=== PATIENT | male | born 1995 | race Caucasian/White ===

== ENCOUNTER 2017-01-08 08:00 | Inpatient (IN) | payer OTHER ==
[~2017-01-08] VITALS: Ht 175.3 cm; Wt 96.2 kg
--- NOTE | ~2017-01-08 | PN ---
Unit #: [id number] #: [id number] Patient: FLASH OSORIO [id number] [facility] [address] [place] [address] [id number] I MR#: [id number] NAME: FLASH OSORIO ROOM: [facility] Age: 21 Sex: M Admission Date: 01/08/2017 : 1995 Attending Physician: Shauna Dejesus M.D. Admitting Physician: Shauna Dejesus M.D. Primary Care Physician: Primary Care Physician Claudia JAIMES NOTES DATE OF SERVICE 01/11/2017 DISCUSSION Mr. Osorio is a 21-year-old white male who was seen today. Chart was reviewed and case was discussed with the staff. He has been anxious, withdrawn, and rather seclusive to himself. Meanwhile, he has been cooperative with the treatment recommendations and has been taking the medications and tolerating them fairly well with no reported side effects. MENTAL STATUS EXAMINATION Young white male who is casually dressed with fair personal hygiene, appears to be in no acute distress or discomfort. He was awake and alert on interaction with intact orientation. His mood is anxious with congruent affect. His speech is slow and goal-directed. He denies any suicidal or homicidal ideations. His insight and judgment remain slightly impaired. TREATMENT PLAN 1. We will continue him on his current medications and treatment protocol. We will monitor his response to medications and make further adjustments as needed. 2. We will continue to follow up. Dictated by... Arley De Dios/sudhakarg TD: 01/11/2017 13:00 JOB #: [id number] Unit #: [id number] #: [id number] Patient: FLASH OSORIO PROGRESS NOTES Page 1 of 1 X Shauna Dejesus MD PROGRESS NOTE
--- NOTE | ~2017-01-08 | DS ---
Unit #: [id number] #: [id number] Patient: [facility]ORIO [id number] [facility] [address] [place] [address] [id number] MR#: [id number] NAME: FLASH OSORIO ROOM: P131 Age: 21 Sex: M Admission Date: 01/08/2017 : 1995 Discharge Date: 01/13/2017 Attending Physician: Shauna Dejesus M.D. Primary Care Physician: Primary Care Physician No DISCHARGE SUMMARY IDENTIFYING DATA Mr. Osorio is a 21-year-old single white male, who is a resident of [place], [place], and was self-referred to the hospital by his father. DISCHARGE DIAGNOSES Psychiatric: Schizoaffective disorder, bipolar type, most recent episode manic with psychosis. Medical: None. Stressors: Mild psychosocial stressors. HISTORY OF PRESENT ILLNESS Please see initial psychiatric evaluation for details. PAST PSYCHIATRIC HISTORY Please see initial psychiatric evaluation for details. PAST MEDICAL HISTORY Please see initial psychiatric evaluation for details. HOSPITAL COURSE The patient was admitted to the adult psychiatric unit at [facility] and was oriented to the hospital environment. Routine p.r.n. medications were initiated, and he was started back on his home medications and the patient was seen to be acutely psychotic and was showing very poor insight into his situation. However, after encouragement, he was willing to take the medication, and Risperdal was initiated and was gradually titrated up to 1 mg in the morning and 2 mg at bedtime with good tolerability and therapeutic response. Followed by which, it was decided that he will be discharged home and will continue treatment on an outpatient basis. DISCHARGE MEDICATION Risperdal 1 mg in the morning and 2 mg at bedtime for psychosis. DISCHARGE CONDITION Stable. PROGNOSIS Fair. Unit #: [id number] #: [id number] Patient: FLASH OSORIO Dictated by... Arley De Dios/sridhar TD: 01/16/2017 01:54 JOB #: [id number] DISCHARGE SUMMARY Page 1 of 1 X Shauna Dejesus MD X DISCHARGE SUMMARY
--- NOTE | ~2017-01-08 | PN ---
Unit #: [id number] #: [id number] Patient: FLASH OSORIO [id number] [facility] [address] [place] [address] [id number] I MR#: [id number] NAME: FLASH OSORIO ROOM: P131 Age: 21 Sex: M Admission Date: 01/08/2017 : 1995 Attending Physician: Shauna Dejesus M.D. Admitting Physician: Shauna Dejesus M.D. Primary Care Physician: Primary Care Physician Claudia NG PROGRESS NOTES DATE 01/12/2017 DISCUSSION Mr. Osorio is a 21-year-old white male who was seen today and chart was reviewed and case was discussed with the staff. He has been anxious, withdrawn and rather seclusive to himself though appears to be doing better in his mood and psychosis as he has been compliant with treatment recommendations. He has been taking his Risperdal and tolerating it fairly well. MENTAL STATUS EXAMINATION Young white male who was casually dressed with fair personal hygiene and appears to be in no acute distress or discomfort. He was awake and alert with intact orientation. His mood was anxious with congruent affect. His speech is slow and restricted in content. His insight and judgement remain slightly impaired. TREATMENT PLAN 1. Will continue on his current medications and treatment protocol. Will monitor his response to the medications and make further adjustments as needed. 2. Will continue to follow up. Dictated by... Shauna Dejesus M.D. IAA/josé miguelh TD: 01/12/2017 20:22 JOB #: [id number] Unit #: [id number] #: [id number] Patient: FLASH OSORIO PROGRESS NOTES Page 1 of 1 X Shauna Dejesus MD PROGRESS NOTE
--- NOTE | ~2017-01-08 | PN ---
Unit #: [id number] #: [id number] Patient: FLASH OSORIO [id number] [facility] [address] [place] [address] [id number] I MR#: [id number] NAME: FLASH OSORIO ROOM: 31 Age: 21 Sex: M Admission Date: 01/08/2017 : 1995 Attending Physician: Shauna Dejesus M.D. Admitting Physician: Shauna Dejesus M.D. Primary Care Physician: Primary Care Physician Claudia NG PROGRESS NOTES DATE 01/10/2017 DISCUSSION Mr. Osorio is a 21-year-old white male with mood disorder and psychosis and was seen today and chart was reviewed and case was discussed with the staff. He remains anxious, withdrawn, disorganized and has been maintaining persistent paranoia and delusional behavior. Meanwhile, he has been taking medications and tolerating them fairly well with no reported side effects. MENTAL STATUS EXAMINATION Young white male who was casually dressed with fair personal hygiene and appears to be in no acute distress or discomfort. He was awake and alert with impaired attention and concentration. His mood was anxious with congruent affect. His speech is fluent and tangential. His thought processes were disorganized with some looseness of associations and flight of ideas. His insight and judgement remains significantly impaired. TREATMENT PLAN 1. Will continue him on his current medications and treatment protocol. Will monitor response to the medications and make further adjustments as needed. 2. Will continue to follow up. Dictated by... Arley De Dios/christian TD: 01/10/2017 15:49 JOB #: [id number] Unit #: [id number] #: [id number] Patient: FLASH OSORIO PROGRESS NOTES Page 1 of 1 X Shauna Dejesus MD PROGRESS NOTE
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
--- NOTE | ~2017-01-08 | HP ---
Unit #: [id number] #: [id number] Patient: FLASH HUYNH [id number] [place] [address] [id number] I MR#: [id number] NAME: FLASH HUYNH ROOM: P131 Age: 21 Sex: M Admission Date: 01/08/2017 : 1995 Attending Physician: Shauna Dejesus M.D. Admitting Physician: Shauna Dejesus M.D. Primary Care Physician: Primary Care Physician No HISTORY AND PHYSICAL HISTORY OF PRESENT ILLNESS Patient is a 21-year-old male admitted to [address] [place] [address] on 01/08/2017 for psychosis. PAST MEDICAL HISTORY None noted. PAST SURGICAL HISTORY Tonsillectomy. SOCIAL HISTORY He is unemployed. He lives alone. He smokes one pack of cigarettes daily. Denies alcohol and drug use. FAMILY MEDICAL HISTORY Noncontributory. ALLERGIES No known drug allergies. CURRENT MEDICATIONS Please see list of home medications. REVIEW OF SYSTEMS CONSTITUTIONAL: No fever or chills. HEENT: Denies any sore throat, ear pain or runny nose. CARDIOVASCULAR: Denies chest pain, irregular heart rhythm or palpitations. CHEST: Denies shortness of breath or cough. No hemoptysis. GASTROINTESTINAL: Denies nausea, vomiting, diarrhea or chronic constipation. ENDOCRINE: Denies history of increased thirst or urination. No recent significant weight loss or gain. GENITOURINARY: Denies dysuria, frequency, or hematuria. SKIN: Denies any rashes. HEMATOLOGIC: Denies history of increased bleeding or bruising. MUSCULOSKELETAL: Denies any hot, swollen joints. No generalized muscle pain. NEUROLOGIC: Denies problems with vision or speech. No frequent, severe headaches. No numbness, tingling or weakness in any extremities. Denies loss of bladder or bowel control. PHYSICAL EXAM GENERAL: He is awake, alert and oriented in no acute distress. VITAL SIGNS: Temperature 98.6, heart rate 78, respiration 18, blood Unit #: [id number] #: [id number] Patient: FLASH HUYNH pressure 141/85. HEIGHT: 5 foot 9. WEIGHT: 212 pounds. SKIN: Warm and dry without rash or lesion. HEENT: Normocephalic. TMs not viewed. Oral and nasal passages clear. Conjunctivae clear. PERRLA. EOMs intact. NECK: Supple without lymphadenopathy or thyromegaly. HEART: Regular rate and rhythm without murmur. LUNGS: Clear. ABDOMEN: Soft, nontender. : Not done. EXTREMITIES: No evidence of cyanosis, clubbing or edema. Moves all without focal deficit. NEUROLOGICAL: Grossly within normal limits. Cranial Nerves: II: Visual maloney are intact. III, IV AND : Extraocular movements are intact. Pupils are equal, round and reactive to light. V: Facial sensation is grossly normal. VII: Facial movements and expression are normal. VIII: Auditory acuity grossly intact. IX, X: Uvula is midline. Phonation is normal. XI: Patient shrugs shoulders and turns head normally. XII: Tongue protrudes in the midline. Sensory and Motor Function: Sensory and motor sensation is grossly normal. Motor: moves all extremities well. IMPRESSION Psychiatric admission. RECOMMENDATIONS Psychiatric per psychiatrist. MEDICAL: No contraindication to participate in facility activities. MEDICAL PROGNOSIS Good. MEDICAL CONDITION Stable. Dictated by... Franc Couch/javed TD: 01/09/2017 02:20 JOB #: [id number] Unit #: [id number] #: [id number] Patient: FLASH HUYNH HISTORY AND PHYSICAL Page 1 of 1 X RENE RIVERA APRN X HISTORY AND PHYSICAL
[2017-01-09 12:34] LABS: BASOPHIL% 0.4 % (0-2.5); EOSINOPHIL# 0.3 X10e3 (0-0.7); EOSINOPHIL% 3.8 % (0.0-7.0); HEMATOCRIT 45.8 % (38.0-50.0); HEMOGLOBIN 15.6 gm/dL (13.0-16.0); LYMPHOCYTE% 26.4 % (17.0-45.0); MEAN CELL VOLUME 85.7 FL (83-96); MEAN CORPUSCULAR HEMOGLOBIN 29.2 PG (28-34); MEAN PLATELET VOLUME 7.9 FL (6.5-11.5); MONOCYTE# 0.7 X10e3 (0-1.0); MONOCYTE% 9.1 % (3.0-12.0); NEUTROPHIL# 4.5 X10e3 (1.5-7.1); NEUTROPHIL% 60.3 % (40-75); PLATELET COUNT 218 X10e3 (140-420); RED BLOOD COUNT 5.34 X10e (3.90-5.60); RED CELL DISTRIBUTION WIDTH 12.7 % (11.0-15.5); WHITE BLOOD COUNT 7.5 X10e3 (4.0-10.5)
[2017-01-09 12:46] LABS: BILIRUBIN,TOTAL 0.8 mg/dL (0.2-2.0); CALCIUM SERUM 9.3 mg/dL (8.4-10.2); GLOM FILT RATE Estimated 106.4 mL/min (>60); POTASSIUM 4.5 mmol/L (3.5-5.1); PROTEIN TOTAL SERUM 6.3 g/dL (6.0-8.3)
[2017-01-09 12:54] LABS: DIFF IND NO
== END 2017-01-13 11:45 | disposition home or self-care (01) | DRG 885 ==
LOC: P1S 11:12
PROVIDERS: Psychiatry & Neurology Psychiatry
DX: F25.0 Schizoaffective disorder, bipolar type (principal); F31.2 Bipolar disorder, current episode manic severe with psychotic features; F17.210 Nicotine dependence, cigarettes, uncomplicated
CPT/HCPCS: 80053; 85025